=== PATIENT | female | born 1950 | race Two or more races ===

== ENCOUNTER 2018-07-11 11:55 | Inpatient (IN) | payer OTHER ==
[~2018-07-11] VITALS: Ht 152.4 cm; Wt 40.0 kg
[2018-07-11 11:57] VITALS: Ht 152.4 cm; Wt 40.0 kg
--- NOTE | 2018-07-11 12:31 | ERD ---
ER Documentation Chief Complaint Chief Complaint ALOC - STAGE 4 PANCREATIC CANCER HPI This is a 67-year-old female with a past medical history of stage IV pancreatic cancer diagnosed in September 2017, currently on hospice with a personal and family desire for comfort measures who is currently presenting with extreme failure to thrive. The patient has had significant decreased appetite for several months, but she stopped eating or drinking anything yesterday. She became less responsive overnight and into this morning. She appears very dehydrated per the family, and they are hoping for rehydration and oxygen supplementation. She has very shallow breaths. The patient appeared to be in a more significant amount of pain that was typical at home. They had trouble getting a hold of the hospice service and felt that they could not appropriately treat her pain at home. They instead brought her to the emergency department. History and physical is limited secondary to patient altered mental status. ROS Limited secondary to altered mentation Medications Home Meds Reported Medications Lorazepam* (Lorazepam*) 0.5 Mg Tablet, 0.5 MG PO Q6 PRN for ANXIETY, TAB 07/11/18 Oxycodone HCl/Acetaminophen (Percocet 5-325 mg Tablet) 1 Each Tablet, 1 EACH PO Q4 PRN for SEVERE PAIN LEVEL 7-10, TAB 07/11/18 Methadone Hcl* (Methadone*) 10 Mg Tab, 20 MG PO QAM, TAB 07/11/18 Allergies Allergies: Coded Allergies: No Known Allergy (Unverified , 07/11/18) PMhx/Soc History of Surgery: Yes (OOPHERECTOMY) Anesthesia Reaction: No Hx Neurological Disorder: No Hx Respiratory Disorders: No Hx Cardiac Disorders: No Hx Psychiatric Problems: No Hx Miscellaneous Medical Probl: Yes (ON HOSPICE AT HOME R/T PANCREATIC CA DX 10/12) Hx Alcohol Use: No Hx Substance Use: No Hx Tobacco Use: No Smoking Status: Never smoker FmHx Family History: No diabetes Physical Exam Vitals Vital Signs Date Temp Pulse Resp B/P (MAP) Pulse Ox O2 O2 Flow FiO2 Time Delivery Rate 07/11/18 80 12 119/97 100 Non 13:15 (104) Rebreather 07/11/18 84 12 150/135 86 Room Air 12:09 (140) 07/11/18 Non 15 12:00 Rebreather 07/11/18 92.8 48 16 11:57 Physical Exam Const: well-developed, cachectic Head: Normocephalic, Atraumatic Eyes: Normal Conjunctiva. Eyes are sunken. Pupils are dilated. ENT: Normal External Ears, Nose. Dry mucous membranes. Neck: No meningismus. Resp: Slow shallow breathing. Clear to auscultation bilaterally, No wheezes, rales or rhonchi Cardio: Regular rate and rhythm. No murmurs, rubs or gallops Abd: Cachectic. Soft, non tender, non distended. Normal bowel sounds Skin: No petechiae or rashes. Increased skin turgor. Ext: No cyanosis, or edema Neur: Awake but minimally responsive. Nonverbal. Minimal movements to extremities. No facial droop. Results 24 hrs Current Medications Medications Dose Sig/Darby Start Time Status Last (Trade) Ordered Route PRN Stop Time Admin Dose Reason Admin Sodium 1,000 ml @ Q20H ONCE 07/11/18 07/11/18 Chloride 50 mls/hr IV 13:00 13:11 07/12/18 08:59 Morphine 2 mg Q1HWA PRN 07/11/18 07/11/18 Sulfate IV PAIN 13:00 13:11 (morphine) LEVEL 6-10 Ondansetron 4 mg BRIDGE ORDER 07/11/18 HCl (Zofran PRN IV 14:00 Inj) NAUSEA/VOMITI 07/12/18 13:59 NG Procedures/MDM MDM The patient's presentation warrants further investigation. Previous medical records, if available, were reviewed. The patient presents with cachexia, decreased oral intake, dehydration and severe failure to thrive. The patient's son is power of disability attorney and indicates that the patient has a DNR/DNI status. They would prefer comfort measures only. They requested that we do not perform any diagnostic testing. An extensive conversation was had regarding goals of care. They are very concerned about their ability to keep the patient comfortable at home. They would like the patient to be admitted to the hospital for symptom control and end-of-life planning. TREATMENT/DISPOSITION The patient was treated with IV fluids and oxygen supplementation per family request. Dr. Odonnell of palliative care was consulted to evaluate the patient. He will initiate a regimen for pain control. ADMISSION At this time, I feel that the patient requires admission for further evaluation and management. The patient will be admitted to [Panel] in accordance with the patient's insurance. The patient was accepted by Dr. Carnes at 1:36 PM on July 11, 2018. Dr. Odonnell will follow the patient in the hospital. Disclaimer: Inadvertent spelling and grammatical errors are likely due to EHR/dictation software use and do not reflect on the overall quality of patient care. Note that the electronic time recorded on this note does not necessarily reflect the actual time of the patient encounter. Departure Diagnosis: Primary Impression: Failure to thrive Failure to thrive age range: in adult Qualified Codes: R62.7 - Adult failure to thrive Additional Impressions: End of life care Pancreatic cancer Pancreatic malignancy location: unspecified Qualified Codes: C25.9 - Malignant neoplasm of pancreas, unspecified Poor appetite Dehydration Comfort measures only status Altered level of consciousness DNI (do not intubate) DNR (do not resuscitate) Condition: Serious CHANDANA DENNIS MD Jul 11, 2018 12:29
[2018-07-11] MEDS ORDERED: METH10TA2 PO (12:59)
[2018-07-11] MEDS ORDERED: OXYC-279 PO (13:00)
[2018-07-11] MEDS ORDERED: morphine 2 MG INJ IV PRN (13:00)
[2018-07-11] MEDS ORDERED: LORA0.5T PO (13:00)
[2018-07-11] MEDS ORDERED: SOD CHLORIDE 0.9% 1,000 ML IV ONE (13:00)
[2018-07-11] MEDS ORDERED: ONDANSETRON 4 MG INJ IV PRN ×2 (14:00→17:00)
[2018-07-11] MEDS ORDERED: SOD CHLORIDE 0.9% 1,000 ML IV SCH (16:32)
[2018-07-11 16:48] VITALS: BP 94/61; PULSE 72; RESP 16
[2018-07-11] MEDS ORDERED: LORAZEPAM 2 MG INJ IV PRN (17:00)
[2018-07-11] MEDS ORDERED: NACL 0.9% 3 ML SYG IV SCH (17:00)
--- NOTE | 2018-07-11 18:14 | HP ---
Date/Time of Note Date/Time of Note DATE: 07/11/18 TIME: 18:12 Assessment/Plan VTE Prophylaxis Pharmacological prophylaxis: NA/contraindicated Pharm contraindication: other Assessment/Plan Hospital Course 1. Terminal pancreatic cancer Family is interested in comfort care Comfort measures, DNR/DNI Morphine drip and Ativan as needed Palliative care consultation appreciated [facility] to evaluate for GIP Prophylaxis: Not indicated HPI/ROS Admit Date/Time Admit Date/Time Jul 11, 2018 at 13:40 Hx of Present Illness Patient is a 67-year-old female with a history of pancreatic cancer who was being treated at home with hospice care. Patient had a sudden deterioration where she no longer speaks and eats and family became concerned and called paramedics. Patient is currently nonverbal on oxygen and family is interested in comfort care. ROS Subjective hx not possible: pt non-verbal PMH/Family/Social Past Medical History Pancreatic cancer Medications Current Medications Sodium Chloride 1,000 ml @ 50 mls/hr Q20H ONCE IV Last administered on 07/11/18at 13:11; Admin Dose 50 MLS/HR; Start 07/11/18 at 13:00; Stop 07/12/18 at 08:59 Morphine Sulfate (morphine) 2 mg Q1HWA PRN IV PAIN LEVEL 6-10 Last administered on 07/11/18at 13:11; Admin Dose 2 MG; Start 07/11/18 at 13:00 Ondansetron HCl (Zofran Inj) 4 mg BRIDGE ORDER PRN IV NAUSEA/VOMITING; Start 07/11/18 at 14:00; Stop 07/12/18 at 13:59 Sodium Chloride 1,000 ml @ 50 mls/hr Q20H IV ; Start 07/11/18 at 16:32 IV Flush (NS 3 ml) 3 ml PER PROTOCOL IV ; Start 07/11/18 at 17:00 Ondansetron HCl (Zofran Inj) 4 mg Q6H PRN IV NAUSEA/VOMITING; Start 07/11/18 at 17:00 Lorazepam (Ativan) 1 mg Q4H PRN IV AGITATION/ANXIETY; Start 07/11/18 at 17:00 Coded Allergies: No Known Allergy (Unverified , 07/11/18) Past Surgical History Past Surgical Hx: no surgical history Family History Significant Family History: no pertinent family hx Social History Alcohol Use: rarely Smoking Status: Never smoker Drug Use: none Exam/Review of Systems Vital Signs Vitals Vital Signs Date Temp Pulse Resp B/P (MAP) Pulse Ox O2 O2 Flow FiO2 Time Delivery Rate 07/11/18 72 16 94/61 (72) 90 16:48 07/11/18 Non 15.0 16:30 Rebreather 07/11/18 92.8 11:57 Exam Constitutional: non-verbal Respiratory: clear to auscultation Cardiovascular: regular rate and rhythm Gastrointestinal: soft Musculoskeletal: nl extremities to inspection CHARLEEN CHAUHAN Jul 11, 2018 18:14
[2018-07-11] MEDS ORDERED: ARTIFICIAL TEARS 15 ML OPH BOTH EYES PRN (18:30)
[2018-07-11] MEDS ORDERED: morphine (DRIP) 100 MG/100 ML 100 ML IV SCH (18:30)
[2018-07-11] MEDS ORDERED: ALBUTEROL/IPRATROPIUM (NEB) 3 ML AMP HHN PRN (18:30)
[2018-07-11] MEDS ORDERED: DIMETHICONE STICK TOP PRN (18:30)
--- NOTE | 2018-07-11 19:34 | DES ---
Date/Time of Note Date/Time of Note DATE: 07/11/18 TIME: 19:32 Discharge/ Summary Admission/Discharge Info Admit Date/Time Jul 11, 2018 at 13:40 Date/Time July 11, 2018 Final Diagnosis Cardiopulmonary failure secondary to pancreatic cancer Preliminary Cause of Cardiopulmonary failure secondary to pancreatic cancer Hospital Course Patient is a 67-year-old female with a history of pancreatic cancer who was being treated at home with hospice care. Patient had a sudden deterioration where she no longer speaks and eats and family became concerned and called paramedics. Patient presented nonverbal and had deteriorated, patient was made comfort care only and given morphine, patient on 07/11/2018 at 7:10 PM. CHARLEEN CHAUHAN Jul 11, 2018 19:34
--- NOTE | 2018-07-12 06:56 | CONS ---
Assessment/Plan Assessment/Plan Assessment/Plan (Daily) Metastatic Pancreatic cancer Pain OOC Malnutrition mS changes Long discussion with family who ere unhappy with patients sudden decline at home at chose to heave her transferred for symptom management. Comfort measures family are in agreement contacted Dr Carnes Consultation Date/Type/Reason Admit Date/Time Jul 11, 2018 at 13:40 Date/Time of Note DATE: 07/12/18 TIME: 06:50 Hx of Present Illness 67 yo female with a h/o meastatic pancreatic cancer whi refused all therapy... Pt was on Hospice care at home . became more short of breath and pain accelerated . Family brought pt to the ER... Past Medical History Home Meds Reported Medications Lorazepam* (Lorazepam*) 0.5 Mg Tablet, 0.5 MG PO Q6 PRN for ANXIETY, TAB 07/11/18 Oxycodone HCl/Acetaminophen (Percocet 5-325 mg Tablet) 1 Each Tablet, 1 EACH PO Q4 PRN for SEVERE PAIN LEVEL 7-10, TAB 07/11/18 Methadone Hcl* (Methadone*) 10 Mg Tab, 20 MG PO QAM, TAB 07/11/18 Allergies: Coded Allergies: No Known Allergy (Unverified , 07/11/18) Past Surgical History Past Surgical Hx: no surgical history Social History Alcohol Use: rarely Smoking Status: Never smoker Drug Use: none Exam/Review of Systems Exam Vitals Vital Signs Date Temp Pulse Resp B/P (MAP) Pulse Ox O2 O2 Flow FiO2 Time Delivery Rate 07/11/18 72 16 94/61 (72) 90 16:48 07/11/18 Non 15.0 16:30 Rebreather 07/11/18 92.8 11:57 Intake and Output 07/11/18 07/11/18 07/12/18 1414:59 22:59 06:59 IntakeIntake Total 300 ml BalanceBalance 300 ml Constitutional: distress, frail, other (emaciated , in distress) Psych: anxiety Neck: supple, non-tender Respiratory: congested cough Cardiovascular: regular rate and rhythm, nl pulses; No bruits, No diastolic murmur, No edema, No gallop, No irregular rhythm, No jugular venous distention (JVD), No murmurs/extra sounds, No rub, No systolic murmur, No S3, No S4, No other Gastrointestinal: soft, nl liver, spleen, non-tender Neurological: confused (minimally responsive), lethargic ADRIANNA HILL Jul 12, 2018 06:56
== END 2018-07-11 21:45 | disposition expired | DRG 437 ==
LOC: E/R 11:55 → 2NE 13:40
PROVIDERS: ADMIT Internal Medicine; ATTEND Internal Medicine
DX: C25.9 Malignant neoplasm of pancreas, unspecified (principal); Z66 Do not resuscitate; Z51.5 Encounter for palliative care; I46.9 Cardiac arrest, cause unspecified
CPT/HCPCS: 96374; J2270; J7030